=== PATIENT | female | born 1950 | race Caucasian/White ===

== ENCOUNTER → 2018-02-06 | Outpatient (CLI) | payer MEDICARE ==
[~2018-02-06] MED LIST: BACTRIM DS 8001 TA1 PO; BENADRYL25 MG PO; CLARITIN10 MG PO; ECOTRIN81 M1 PO; EPI EZ PEN1 MG/ML IM; HYDROCODONE BIT1 T11 PO; KEFLEX500 MG PO; LEVOXYL0.088 MG PO; LEXAPRO10 MG PO; LIPITOR40 MG PO; LOMOTIL 0.025 M1 TA1 PO; NEXIUM40 MG PO; OMEPRAZOLE40 MG PO; OXYBUTYNIN5 MG PO; PREVACID30 M1 PO; SYNTHROID,LEV200 MCG PO; ULTRAM50 MG PO; ZOFRAN ODT4 MG SL
[2018-02-06 13:50] LABS: BASO # 0.1 10*3/uL (0.0-0.1); BASO % 0.5 % (0.0-1.0); EOS # 0.2 10*3/uL (0.0-0.4); EOS % 1.7 % (1.0-4.0); HEMATOCRIT 39.9 % (37.0-47.0); HEMOGLOBIN 12.9 g/dl (12.0-16.0); LYMPH # 2.6 10*3/uL (1.3-4.4); MEAN CELL VOLUME 85.1 fl (81.0-99.0); MEAN CORPUSCULAR HGB 27.5 pg (27.0-31.0); MEAN CORPUSCULAR HGB CONC 32.3 g/dl (33.0-37.0); MEAN PLATELET VOLUME 9.7 fl (9.6-12.3); MONO # 0.8 10*3/uL (0.1-1.0); MONO % 7.7 % (3.0-9.0); NEUT # 6.7 10*3/uL (2.3-7.9); NEUT % 64.9 % (47.0-73.0); PLATELET COUNT AUTOMATED 362 10*3/uL (130-400); RED BLOOD COUNT 4.69 10*6/uL (4.10-5.10); RED CELL DISTRI WIDTH 14.1 % (0-14.5); WHITE BLOOD COUNT 10.3 10*3/uL (4.8-10.8)
[2018-02-07 17:04] LABS: ANTICARDIOLIPIN AB, IGG, QN <9 GPL U/mL (0-14); ANTICARDIOLIPIN AB, IGM, QN <9 MPL U/mL (0-12); CARDIOLIPIN AB IGA 161836 <9 APL U/mL (0-11)
[2018-02-08 00:02] LABS: ANTI-THROMBIN III ACTIVITY 108 % (75-135); PROTEIN S-FUNCTIONAL 164525 78 % (63-140)
== END | disposition home or self-care (01) ==
LOC: LAB 13:14
PROVIDERS: Student in an Organized Health Care Education/Training Program
DX: I63.9 Cerebral infarction, unspecified (principal)

== ENCOUNTER → 2018-03-13 | Outpatient (CLI) | payer MEDICARE ==
--- NOTE | ~2018-03-13 | ST ---
[place], [place] EXERCISE STRESS TEST REPORT NAME: NAE APPLE UNIT #: [id number] ROOM: DOCTOR: FARHAD LEW MD BIRTHDATE: [birth year] DOS: 03/13/2018 PHARMACOLOGIC STRESS TEST REASON FOR STRESS TEST: 1. Dyspnea on exertion. 2. History of strokes. PROCEDURE: The patient was given a rapid infusion of regadenoson 0.4 mg intravenously followed by a saline flush. She experienced dyspnea, shaking and a "cold" sensation, but had no nausea or headache. The resting electrocardiogram was normal with an incomplete right bundle branch block. No further changes occurred with the infusion. However, she did have a normal heart rate response to the infusion. Forty seconds after the infusion of regadenoson, she was given radionuclide intravenously. IMPRESSION: 1. Well tolerated infusion of regadenoson. 2. Radionuclide administered. Please see the separate report for details of the patient's nuclear perfusion imaging and exercise results. FARHAD LEW MD CM:STRESS:EXERCISE STRESS TEST REPORT 1334 23 FARHAD LEW MD
== END | disposition home or self-care (01) ==
LOC: CARD 07:58
DX: I10 Essential (primary) hypertension (principal); I63.9 Cerebral infarction, unspecified; R06.02 Shortness of breath; R53.81 Other malaise

== ENCOUNTER 2018-06-13 12:48 | Inpatient (IN) | payer MEDICARE ==
[~2018-06-13] VITALS: Ht 157.4 cm; Wt 107.2 kg
--- NOTE | ~2018-06-13 | EKG ---
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
--- NOTE | ~2018-06-13 | EKG ---
[place], [place] ELECTROCARDIOGRAM REPORT NAME: NAE APPLE UNIT #: [id number] ROOM: [facility] DOCTOR: UMU DRAFT REPORT BIRTHDATE: [birth year] [facility] Test Date: 2018-06-13 Test Time: 15:51:39 Pat Name: NAE APPLE Department: Room: [facility] Gender: F Non Destructive Tester: : 1950 Requested By: ROSA JOYCE Order Number: [id number] Reading MD: Abe Thacker MD Measurements Intervals [place] Rate: 58 P: 50 DC: 165 QRS: 13 QRSD: 100 T: 17 QT: 417 QTc: 410 Interpretive Statements Sinus rhythm Low voltage, precordial leads Abnormal R-wave progression, early transition Baseline wander in lead(s) V4 No change from earlier ECG this date Electronically Signed On 06-13-2018 18:35:15 PST by Abe Thacker MD CM:EKGRPT:ELECTROCARDIOGRAM REPORT 1551 1835 ROSA JOYCE EPIPHANY DRAFT REPORT ROSA JOYCE
--- NOTE | ~2018-06-13 | PR ---
[place], [place] PROGRESS NOTE [id number] UNIT #: [id number] ROOM: 525 DOCTOR: FARHAD LEW MD BIRTHDATE: [birth year] DOS: 06/14/2018 SUBJECTIVE: The patient was seen today at her bedside 06/14/2018 for followup of chest pain and a history of cryptogenic strokes. She is a 68-year-old woman who had 2 strokes during the summer of 2017. She was evaluated at the stroke center in [place] and no cause was found. The neurologist who saw her opined that this could be cardioembolic from occult arrhythmias. A full workup of that has not been completed, however. She did have an echocardiogram with saline contrast that showed no cardiac source of emboli and did not have any significant cerebrovascular disease either. She presented to the hospital now with substernal chest discomfort. She had several hours of pain on [place] and also in the hospital yesterday. EKGs obtained during pain showed no acute changes and despite prolonged pain, she did not have any elevation in troponin. She did have a recent pharmacologic stress test that showed a small area of anterior ischemia, but the amount of myocardium at risk was very limited and this is best treated medically. It probably has nothing to do with the symptoms she experiences now. On exam today, she is comfortable. Her speech is much more fluid than it was last night. OBJECTIVE: VITAL SIGNS: Her pulse is 64 and regular, blood pressure is 122/58. She is afebrile. NECK: Supple. She has no jugular distention. Carotids are full. LUNGS: Respirations are unlabored. Her chest is clear. HEART: Has a regular rhythm with a soft S4 gallop, but no S3 or murmur. ABDOMEN: Benign. EXTREMITIES: Showed no edema. I did speak to her daughter last night and explained my impressions and plan. IMPRESSION: 1. Recent episodes of cryptogenic stroke. 2. Mildly abnormal pharmacologic stress test done within the last 6 months. 3. Substernal chest pain, almost certainly not cardiac in origin and most likely gastrointestinal. PLAN: In order to complete her evaluation for cryptogenic stroke, I have arranged for her to undergo a 30-day mobile cardiac outpatient telemetry (MCOT) and we will follow up with her in the office after that. For now, she will continue her current medications, which included Ditropan 10 mg daily, levothyroxine 175 mcg daily, cetirizine 10 mg daily, enteric-coated aspirin 81 mg daily, metoprolol succinate 25 mg at bedtime, escitalopram 20 mg at bedtime, buspirone 10 mg b.i.d., atorvastatin 40 mg daily. I will leave further evaluation of her GI tract and further management of apparent reflux or esophageal spasm to her primary physicians. [place], [place] PROGRESS NOTE NAME: NAE APPLE UNIT #: [id number] ROOM: [facility] DOCTOR: FARHAD LEW MD BIRTHDATE: [birth year] I thank the hospitalist physician for asking our advice regarding her care. FARHAD LEW MD CM:PNTRANS 1207 [id number] FARHAD LEW MD 06/17/18 1327 interface
--- NOTE | ~2018-06-13 | EKG ---
[place], [place] ELECTROCARDIOGRAM REPORT NAME: NAE APPLE UNIT #: [id number] ROOM: 525 DOCTOR: UMU DRAFT REPORT BIRTHDATE: [birth year] [facility] Test Date: 2018-06-13 Test Time: 13:19:23 Pat Name: NAE APPLE Department: Room: Gender: F Quality Control Supervisor: Isis Cao : 1950 Requested By: ROSA JOYCE Order Number: [id number] Reading MD: Abe Thacker MD Measurements Intervals [place] Rate: 71 P: 66 [place]: 148 QRS: 32 QRSD: 103 T: 48 QT: 401 QTc: 436 Interpretive Statements Sinus rhythm Low voltage, precordial leads RSR' in V1 or V2, right VCD or RVH Compared to ECG 01/14/2018 15:02:28 T-wave abnormality no longer present Electronically Signed On 06-13-2018 18:29:47 PST by Abe Thacker MD CM:EKGRPT:ELECTROCARDIOGRAM REPORT 1319 1829 ROSA JOYCE EPIPHANY DRAFT REPORT ROSA JOYCE
[2018-06-13 12:51] VITALS: BP 153/74
[2018-06-13 13:24] LABS: BASO # 0.1 10*3/uL (0.0-0.1); BASO % 0.8 % (0.0-1.0); EOS # 0.4 10*3/uL (0.0-0.4); EOS % 3.7 % (1.0-4.0); HEMATOCRIT 41.5 % (37.0-47.0); HEMOGLOBIN 13.4 g/dl (12.0-16.0); LYMPH # 2.2 10*3/uL (1.3-4.4); LYMPH % 23.5 % (27.0-41.0); MEAN CELL VOLUME 84.5 fl (81.0-99.0); MEAN CORPUSCULAR HGB 27.3 pg (27.0-31.0); MEAN CORPUSCULAR HGB CONC 32.3 g/dl (33.0-37.0); MEAN PLATELET VOLUME 9.8 fl (9.6-12.3); MONO # 0.6 10*3/uL (0.1-1.0); MONO % 6.6 % (3.0-9.0); NEUT # 6.2 10*3/uL (2.3-7.9); NEUT % 65.2 % (47.0-73.0); PLATELET COUNT AUTOMATED 354 10*3/uL (130-400); RED BLOOD COUNT 4.91 10*6/uL (4.10-5.10); RED CELL DISTRI WIDTH 15.2 % (0-14.5); WHITE BLOOD COUNT 9.5 10*3/uL (4.8-10.8)
[2018-06-13 13:33] LABS: ACT PARTIAL THROMBO TIME 22.7 SECONDS (20.8-31.5)
[2018-06-13] MEDS ORDERED: TOPROL XL25 MG PO (13:33)
[2018-06-13] MEDS ORDERED: BUSPAR5 MG PO (13:34)
[2018-06-13 13:43] LABS: ALBUMIN 3.3 gm/dl (3.1-4.5); ALKALINE PHOSPHATASE 178 U/L (45-117); BUN 12 mg/dl (7-24); CHLORIDE 104 mmol/L (98-107); CREATININE 0.97 mg/dL (0.55-1.02); POTASSIUM 4.1 mmol/L (3.5-5.1); SGOT/AST 23 IU/L (3-35); SGPT/ALT 47 U/L (12-78); SODIUM 139 mmol/L (136-145); TOTAL PROTEIN 7.9 gm/dL (6.4-8.2)
[2018-06-13 13:46] LABS: TROPONIN I < 0.015 ng/ml (<0.045)
[2018-06-13 14:50] VITALS: BP 129/72
[2018-06-13] MEDS ORDERED: LEXAPRO20 MG PO (15:00)
[2018-06-13] MEDS ORDERED: SYNTHROID,LEV175 MCG PO (15:01)
[2018-06-13] MEDS ORDERED: OXYBUTYNIN5 MG PO (15:02)
[2018-06-13] MEDS ORDERED: IBU400 M1 PO (15:04)
[2018-06-13] MEDS ORDERED: ZYRTEC10 MG PO (15:04)
[2018-06-13 15:10] VITALS: BP 122/86
--- NOTE | 2018-06-13 15:10 | NUR ---
A 68, admitted to 5E, under the services of KIRSTIE Riley DO with a diagnosis of CHEST PAIN. Chief complaint is CHEST PAIN. Patient arrived via stretcher from ER. Monitor applied. Initial assessment completed. Vital signs taken and recorded. KIRSTIE RILEY DO notified of admission to the unit. Orders received. See assessment for past medical history, medications and allergies. Patient and/or family oriented to unit. [address] visitation policy reviewed. Clothing/patient valuable form completed. AMERICA SOSA
--- NOTE | 2018-06-13 15:32 | NUR ---
MED REC UPDATED WITH [facility]. DR DAWSON NOTIFIED.
--- NOTE | 2018-06-13 15:34 | NUR ---
DR LEW'S OFFICE CALLED RE: CONSULT, INFO GIVEN.
[2018-06-13 16:00] VITALS: BP 122/90
[2018-06-13 20:00] VITALS: BP 119/53
--- NOTE | 2018-06-13 22:09 | NUR ---
NOTIFIED DR PEREZ OF PATIENT REQUESTING SOMETHING FOR HEARTBURN. STATED HE WILL PUT SOMETHING IN.
[2018-06-14] VITALS: BP 100/45; BP 110/62
[2018-06-14 06:27] LABS: ALBUMIN 2.9 gm/dl (3.1-4.5); ALKALINE PHOSPHATASE 153 U/L (45-117); BUN 13 mg/dl (7-24); CHLORIDE 104 mmol/L (98-107); CHOLESTEROL 114 mg/dL (<200); CREATININE 0.86 mg/dL (0.55-1.02); FREE T4 1.22 ng/dl (0.76-1.46); HDL CHOLESTEROL 46 mg/dl (40-60); LDL CHOLESTEROL 55 mg/dL (9-159); PHOSPHOROUS 3.3 mg/dL (2.5-4.9); SGOT/AST 21 IU/L (3-35); SGPT/ALT 40 U/L (12-78); SODIUM 139 mmol/L (136-145); TOTAL PROTEIN 7.1 gm/dL (6.4-8.2); TRIGLYCERIDES 66 mg/dl (<150); VLDL CHOLESTEROL 13 mg/dL (6-40)
[2018-06-14 06:32] LABS: ACT PARTIAL THROMBO TIME 23.5 SECONDS (20.8-31.5)
[2018-06-14 06:34] LABS: BASO # 0.1 10*3/uL (0.0-0.1); EOS # 0.3 10*3/uL (0.0-0.4); EOS % 3.3 % (1.0-4.0); HEMATOCRIT 38.2 % (37.0-47.0); HEMOGLOBIN 11.8 g/dl (12.0-16.0); LYMPH # 3.2 10*3/uL (1.3-4.4); LYMPH % 30.4 % (27.0-41.0); MEAN CELL VOLUME 85.3 fl (81.0-99.0); MEAN CORPUSCULAR HGB 26.3 pg (27.0-31.0); MEAN CORPUSCULAR HGB CONC 30.9 g/dl (33.0-37.0); MEAN PLATELET VOLUME 9.6 fl (9.6-12.3); MONO # 0.8 10*3/uL (0.1-1.0); MONO % 7.5 % (3.0-9.0); NEUT % 57.6 % (47.0-73.0); PLATELET COUNT AUTOMATED 306 10*3/uL (130-400); RED BLOOD COUNT 4.48 10*6/uL (4.10-5.10); RED CELL DISTRI WIDTH 15.3 % (0-14.5); WHITE BLOOD COUNT 10.4 10*3/uL (4.8-10.8)
--- NOTE | 2018-06-14 07:16 | NUR ---
PATIENT RESTING ON RIGHT SIDE WITH EYES CLOSED. RESPIRATIONS ARE EASY AND REGULAR. NO DISTRESS IS NOTED. BED IS IN LOWEST POSTIION WITH WHEELS LOCKED. CALL LIGHT IS WITHIN REACH. WILL CONINTUE TO MONITOR.
[2018-06-14 08:00] VITALS: BP 122/58
--- NOTE | 2018-06-14 09:00 | NUR ---
Senior Environmental Consultant in to talk to patient. Patient states lives at home with family. There are few steps in the home. Physician: yesenia bustos Pharmacy: [facility] health services: none Patient's level of ADLs: INDEPENDENT Patient has working utilities: all working DME: none Follow-up physician's appointment after d/c: will be made by hospitalist nurse director upon discharge Does patient want to access PORTAL?: no Discharge plan discussed with patient, patient lives at home with family, she is independent in adls and ambulation, patient states she will be going back home when able and denies any home needs. ELIZA SIM
[2018-06-14 09:34] LABS: VITAMIN D, 25-HYDROXY 25.7 ng/mL (30-100)
[2018-06-14 12:00] VITALS: BP 123/62
--- NOTE | 2018-06-14 13:52 | NUR ---
Discharge instructions reviewed with patient/family. Patient receptive and verbalizes understanding. Follow-up care arranged. Written instructions given to patient/family. HEP LOCK REMOVED AND DRESSING/PRESSURE APPLIED. MANAGING DIRECTOR ACCOUNTED FOR. ALL BELONGINGS GATHERED AND ACCOUNTED FOR. ROBERTO CARLOS CHUA
--- NOTE | 2018-06-14 14:28 | NUR ---
Nursing screen received and chart review completed. Patient to be discharge today. Emily Long OTR/L
--- NOTE | 2018-06-17 07:52 | NUR ---
PHYSICAL THERAPY Nursing screen recieved. Patient discharged. Thank you. Kaya Florez,PT
[2018-10-22] MEDS ORDERED: Synthroid,Lev150 MCG PO (16:46)
[2018-10-22] MEDS ORDERED: CLARITIN10 MG PO (16:53)
[2018-10-24] MEDS ORDERED: CEFUROXIME250 MG PO (12:32)
== END 2018-06-14 13:52 | disposition home or self-care (01) | DRG 392 ==
LOC: ED 12:48 → 5E 14:19 → EDHOLD 14:19 → 5E 14:28
PROVIDERS: Internal Medicine; Nurse Practitioner Family; ADMIT Internal Medicine
DX: K21.9 Gastro-esophageal reflux disease without esophagitis (principal); E44.1 Mild protein-calorie malnutrition; R47.01 Aphasia; Z68.41 Body mass index [BMI] 40.0-44.9, adult; R07.89 Other chest pain; E78.5 Hyperlipidemia, unspecified; D72.810 Lymphocytopenia; I10 Essential (primary) hypertension; R73.9 Hyperglycemia, unspecified; E03.9 Hypothyroidism, unspecified; N39.41 Urge incontinence; F32.9 Major depressive disorder, single episode, unspecified; R94.39 Abnormal result of other cardiovascular function study; Z88.2 Allergy status to sulfonamides; Z84.89 Family history of other specified conditions; Z86.73 Personal history of transient ischemic attack (TIA), and cerebral infarction without residual deficits; Z91.030 Bee allergy status

== ENCOUNTER → 2018-07-02 | Outpatient (CLI) | payer MEDICARE ==
[~2018-07-02] MED LIST changes: +BUSPAR5 MG PO; +CEFUROXIME250 MG PO; +IBU400 M1 PO; +LEXAPRO20 MG PO; +PERCOCET 5-3251 EACH PO; +SYNTHROID,LEV175 MCG PO; +Synthroid,Lev150 MCG PO; +TOPROL XL25 MG PO; +ZYRTEC10 MG PO
--- NOTE | ~2018-07-02 | SLPPOC ---
[place], [place] BRAZER RESISTANCE PLAN OF CARE NAME: NAE APPLE UNIT #: [id number] ROOM: DOCTOR: ALVIN EDWARDS DO Speech Language Pathology Plan of Care Page 1 1 (Initial Evaluation) of Patient Name: NAE APPLE Date: 07/02/2018 02:24 PM : 1950 SOC Date: 07/02/2018 [facility]: [facility] Provider #: [id number] Treating Clinician: LEVON Gregorio-BRAZER RESISTANCE Referring Physician: ALVIN EDWARDS Medicare #: [id number] Visits From SOC: Onset Date Description Code Primary Diagnosis: 07/02/2018 A0000 NO DIAGNOSIS SENT TO THE [facility] INTERFACE Subjective Comments: Initial evaluation created to initiate the electronic medical record. Please see Jumblets for details. Initial Level Goals Functional Limitation Reporting Swallowing G8996 - Swallowing functional limitation, current status at therapy episode outset and at reporting intervals Current Status: CI - At least 1 percent but less than 20 percent impaired, limited or restricted G8997 - Swallowing functional limitation, projected goal status, at therapy episode outset, at reporting intervals, and at discharge or to end reporting Goal Status: CI - At least 1 percent but less than 20 percent impaired, limited or restricted G8998 - Swallowing functional limitation, discharge status, at discharge from therapy or to end reporting Discharge Status: CI - At least 1 percent but less than 20 percent impaired, limited or restricted 07/02/2018 2:25:14 PM ALVIN EDWARDS Date/Time LEVON Gregorio-BRAZER RESISTANCE Date I certify the need for these services furnished under this plan of treatment while under my care. State License #: [id number] CM:SLPPOC 1430 1430 [facility] TH[facility]
--- NOTE | ~2018-07-02 | PROC NOTE ---
[place], [place] PROCEDURE NOTE NAME: NAE APPLE UNIT #: [id number] ROOM: DOCTOR: SYBILADELINA BIRTHDATE: [birth year] DOS: 07/02/2018 MODIFIED BARIUM SWALLOW ORDERING PHYSICIAN: Katie Agarwal DO RADIOLOGIST: Dr. Lincoln. BACKGROUND INFORMATION: The patient is a 68-year-old patient was seen for modified barium swallow. This test was ordered to view the pharyngeal phase of the swallow. This patient suffered 2 CVAs several months ago with resultant speech, language, and swallowing difficulties. The patient reports food sticking and frequent cough and throat clearing with meals. The patient currently receives a regular diet and honey-thick liquids. For today's assessment, the patient was alert and able to follow commands. Respiratory status was within normal limits. Oral peripheral examination revealed presence of partial plates. Lingual, labial, and buccal skills were within functional limits in terms of strength, range of motion, and coordination. The patient was able to volitionally cough and swallow. METHODS AND MATERIALS USED FOR THE EXAM: The patient was positioned in the lateral plane and the exam was viewed under fluoroscopy. The patient was presented with a variety of consistencies to assess swallowing skills including applesauce mixed with barium presented in half teaspoon amounts, barium-coated cookie and sandwich given in bite size pieces and honey thick, nectar thick and thin liquid barium taken by cup. The patient was given the cup and swallowed in single sip size amounts. ORAL PHASE: The patient achieved adequate labial seal around cup and spoon with no anterior loss. Bolus formation and transit were adequate. Mastication was slow and careful. The patient achieved adequate tongue to palate contact. Tongue to posterior pharyngeal wall contact was adequate. Velar functioning was within normal limits with no nasal regurgitation. PHARYNGEAL PHASE: The pharyngeal swallow occurred within a timely manner. During the swallow, laryngeal elevation and epiglottic function were within normal limits. There was no penetration or aspiration occurring with any consistency. There was no residue in the pharynx. ESOPHAGEAL PHASE: This phase of the swallow was not formally assessed during this exam. IMPRESSIONS AND RECOMMENDATIONS: Based upon assessment results, this 68-year-old patient presents with oral and pharyngeal swallowing skills within normal limits with all consistencies given. There was no penetration, aspiration or residue. Recommend the patient receive a regular diet and thin liquids. The patient did report coughing and choking at meals, sometimes; therefore, it was recommended that she be monitored for signs and symptoms of aspiration during the full meal and if these are displayed, the patient could be provided with nectar thick liquid instead of thin liquid for safety. Recommend [place], [place] PROCEDURE NOTE NAME: NAE APPLE UNIT #: [id number] ROOM: DOCTOR: ADELINA DEVINE BIRTHDATE: [birth year] safe swallow precautions such as small bites and sips, upright positioning for meals and alternating liquid and solid. Continued outpatient therapy is also recommended. Results and recommendations were shared with the patient, her daughter and the patient's speech pathologist. Thank you very much for this referral, should you have any questions regarding this patient, please contact the speech pathologist at [phone]. ADELINA DEVINE CM:PROCNOTE:PROCEDURE NOTE 1441 1818 ADELINA DEVINE
--- NOTE | ~2018-07-02 | SLPIE ---
[place], [place] DIRECTOR OF PATIENT CARE INITIAL EVALUATION NAME: NAE APPLE UNIT #: [id number] ROOM: DOCTOR: ALVIN EDWARDS DO Speech Language Pathology Initial Evaluation Page 1 1 of Patient Name: NAE APPLE Date: 07/02/2018 02:24 PM : 1950 SOC Date: 07/02/2018 Provider: [facility] Provider #: [id number] Treating Clinician: LEVON Gregorio-DIRECTOR OF PATIENT CARE Referring Physician: ALVIN EDWARDS Patient Information Address: [address] [place] [address] Physician: ALVIN EDWARDS Physician #: City, [facility], Zip: [place] [address] Occupation: Unknown # of Approved Visits: 0 Gender: Female Application Trainer: MARIAH CARY Medicare #: [id number] Rehabilitation Information / History Onset Date Code Description Primary Diagnosis: 07/02/2018 A0000 NO DIAGNOSIS SENT TO THE [facility] INTERFACE Subjective Comments: Initial evaluation created to initiate the electronic medical record. Please see EATON for details. Rehabilitation Information / History Clinical Findings Functional Goals Functional Limitation Reporting Swallowing G8996 - Swallowing functional limitation, current status at therapy episode outset and at reporting intervals Current Status: CI - At least 1 percent but less than 20 percent impaired, limited or restricted G8997 - Swallowing functional limitation, projected goal status, at therapy episode outset, at reporting intervals, and at discharge or to end reporting Goal Status: CI - At least 1 percent but less than 20 percent impaired, limited or restricted G8998 - Swallowing functional limitation, discharge status, at discharge from therapy or to end reporting Discharge Status: CI - At least 1 percent but less than 20 percent impaired, limited or restricted 07/02/2018 2:25:14 PM LEVON Gregorio-DIRECTOR OF PATIENT CARE Date/Time [place], [place] DIRECTOR OF PATIENT CARE INITIAL EVALUATION NAME: NAE APPLE UNIT #: [id number] ROOM: DOCTOR: ALVIN EDWARDS DO [facility] License #: [id number] CM:SLPIE 1430 143 [facility]
--- NOTE | ~2018-07-02 | SLPPN ---
[place], [place] LANDSCAPE CREW MEMBER PROGRESS NOTE NAME: NAE APPLE UNIT #: [id number] ROOM: DOCTOR: ALVIN EDWARDS DO Speech Language Pathology Treatment Note Page 1 1 of Patient Name: NAE APPLE Date: 07/02/2018 02:25 PM : 1950 SOC Date: 07/02/2018 Provider: [facility] Provider #: [id number] Treating Clinician: LEVON Gregorio-PRICILA Referring Physician: ALVIN EDWARDS Onset Date Description Code Primary Diagnosis: 07/02/2018 A0000 NO DIAGNOSIS SENT TO THE [facility] INTERFACE Time In: 01:00 PM Time Out: 02:00 PM LANDSCAPE CREW MEMBER Interventions and CPT Codes Consisted of: CPT Code Modifiers Minutes Units MOTION FLUOROSCOPY/SWALLOW 41999 60 1 Total Minutes: 60 Total Timed Minutes: 0 Total Untimed Minutes: 60 Total Units: 1 Total Timed Units: 0 Total Untimed Units: 1 07/02/2018 2:26:18 PM ELDER Gregorio Date/Time State License #: [id number] CM:ALEXYS 1430 1430 [facility]
--- NOTE | 2018-07-02 14:27 | NUR ---
SPEECH PATHOLOGY Outpatient MBS completed as per orders. This was ordered to view the pharyngeal phase of the swallow. Patient suffered two CVAs several months ago, with resultant speech/language and swallowing difficulties. Patient reports foods sticking and frequent cough/throat clearing with meals. She currently receives a regular diet and honey thick liquids. During assessment she was alert and cooperative. Oral peripheral exam revealed presence of partial plates. Lingual/labial and buccal skills were WFL in terms of strength, ROM and coordination. She was assessed with puree, solids and honey thick, nectar thick and thin liquid. She displayed oral and pharyngeal swallowing skills WNL with all consistencies. Patient displayed slow, careful chewing of solids. She swallowed in a timely manner with no penetration, aspiration or residue. Recommend a regular diet and thin liquid. Also recommend to monitor for s/s aspiration, and if they are displayed during meals, nectar thick liquid could be provided instead of thin liquid. Also nasreen. safe swallow precautions such as small bites/sips, upright positioning for meals and alternating liquid and solid. Continued outpatient therapy is also recommended. Results/nasreen. were shared with patient, her daughter and outpatient VOLUNTEER ASSISTANT. Dictated report to follow. Thank you for this referral. ADELINA DEVINE MSCCC-VOLUNTEER ASSISTANT
== END | disposition home or self-care (01) ==
LOC: RAD/SH 06-17 14:00
DX: R13.10 Dysphagia, unspecified (principal); R22.0 Localized swelling, mass and lump, head; M32.9 Systemic lupus erythematosus, unspecified

== ENCOUNTER 2018-07-26 19:35 | Inpatient (IN) | payer MEDICARE ==
[~2018-07-26] VITALS: Ht 157.5 cm; Wt 104.9 kg
--- NOTE | ~2018-07-26 | EKG ---
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
--- NOTE | ~2018-07-26 | O ---
[place], [place] OPERATIVE NOTE [id number] UN[facility] #: [id number] ROOM: 531 DOCTOR: JASKARAN VALLEJO MD BIRTHDATE: [birth year] DOS: 07/27/2018 PREOPERATIVE DIAGNOSIS: Acute cholecystitis. POSTOPERATIVE DIAGNOSIS: Acute cholecystitis. PROCEDURE: Laparoscopic cholecystectomy. SURGEON: Jaskaran Vallejo MD PLATE SETTER: MIRELA. ANESTHESIA: General with endotracheal intubation. INDICATIONS: This is a 68-year-old lady admitted with right upper quadrant abdominal pain and on a CAT scan that showed acute cholecystitis. It was decided to take the patient to the operating room for the above-mentioned procedure. The procedure and its complications were explained to the patient in detail preoperatively. Complications that were discussed included but were not limited to bleeding, infection, hematoma/seroma/abscess formation, biloma formation, inadvertent injury to common bile duct, incisional hernia formation and prolonged postoperative pain. She agreed to proceed. DESCRIPTION OF PROCEDURE: After identifying the patient, the patient was brought to the operating suite and laid in the supine position. After induction of general anesthesia, timeout procedure was called and the parts were then painted and draped in the usual sterile fashion. An incision in a transverse fashion was made below the umbilicus. The skin and the subcutaneous tissue were incised. The fascia was opened and 2 stay sutures were taken with 0 Vicryl on either side. The peritoneum was opened. A 12 mm Isabela port was introduced into the peritoneal cavity and a pneumoperitoneum was created. Under direct vision, an epigastric incision of 12 mm and two 5 mm incisions were made in the right upper quadrant and appropriate size ports were introduced. The gallbladder was found to be acutely inflamed. Approximately 100 mL of fluid was aspirated from the gallbladder and in order to better grasp the gallbladder. There were some chronic adhesions between the gallbladder and the underlying omentum, which were taken down with the help of electrocautery. The gallbladder was then retracted superiorly and laterally. The cystic duct and the cystic artery were carefully dissected till the critical view of safety was identified and the triangle of Calot was clearly delineated. Thereafter, each of the structures were clipped 3 times and cut between the first and the second clip. The gallbladder was then removed from the bed of the gallbladder with the help of electrocautery. It was placed in an EndoCatch bag and removed from the peritoneal cavity and sent for histopathological diagnosis. Thereafter, copious amount of saline was used for irrigation and hemostasis was achieved in the liver bed. After hemostasis was confirmed, the irrigation fluid was sucked away. The right upper quadrant and epigastric ports were removed and there was no bleeding seen. The umbilical port was also removed and the 2 stay sutures were tied together and an additional 0 Vicryl suture was taken in a [id number] fashion to close the fascial defect. The edges of the skin were [place], [place] OPERATIVE NOTE NAME: NAE APPLE UNIT #: [id number] ROOM: 531 DOCTOR: JASKARAN VALLEJO MD BIRTHDATE: [birth year] infiltrated with 1% lidocaine and then approximated with the help of 4-0 Vicryl in a subcuticular running fashion. Dressings were placed in all the 4 incisions and the patient was extubated uneventfully and brought back to the recovery room in stable fashion. There were no complications. Dr. Jaskaran Vallejo, the attending surgeon, was present throughout the operating case. Jaskaran Vallejo MD CM:OPRECORD:OPERATIVE NOTE 1046 1146 JASKARAN VALLEJO MD 07/27/18 1146 interface
--- NOTE | ~2018-07-26 | EKG ---
[place], [place] ELECTROCARDIOGRAM REPORT NAME: NAE APPLE UNIT #: [id number] ROOM: 531 DOCTOR: UMU DRAFT REPORT BIRTHDATE: [birth year] [facility] Test Date: 2018-07-27 Test Time: 03:25:43 Pat Name: NAE APPLE Department: Room: 531 1 Gender: F Clinical Technician: : 1950 Requested By: LIONEL FRAZIER Order Number: [id number] Reading MD: Abe Thacker MD Measurements Intervals [place] Rate: 88 P: 52 ME: 159 QRS: 34 QRSD: 105 T: 8 QT: 348 QTc: 421 Interpretive Statements Sinus rhythm RSR' in V1 or V2, probably normal variant Nonspecific T abnormalities, anterior leads Compared to ECG 06/13/2018 17:36:39 T-wave abnormality now present Right ventricular hypertrophy no longer present Electronically Signed On 07-31-2018 15:28:17 PST by Abe Thacker MD CM:EKGRPT:ELECTROCARDIOGRAM REPORT [id number] LIONLE SANZ DRAFT REPORT LIONEL FRAZIER
[~2018-07-26 19:35] MED LIST changes: -CEFUROXIME250 MG PO; -PERCOCET 5-3251 EACH PO; -Synthroid,Lev150 MCG PO
[2018-07-26 19:39] VITALS: BP 138/62
[2018-07-26 20:44] LABS: BASO # 0.1 10*3/uL (0.0-0.1); BASO % 0.4 % (0.0-1.0); EOS % 0.2 % (1.0-4.0); HEMATOCRIT 39.4 % (37.0-47.0); HEMOGLOBIN 12.9 g/dl (12.0-16.0); LYMPH # 1.5 10*3/uL (1.3-4.4); LYMPH % 9.2 % (27.0-41.0); MEAN CELL VOLUME 83.3 fl (81.0-99.0); MEAN CORPUSCULAR HGB 27.3 pg (27.0-31.0); MEAN CORPUSCULAR HGB CONC 32.7 g/dl (33.0-37.0); MEAN PLATELET VOLUME 9.4 fl (9.6-12.3); MONO # 1.4 10*3/uL (0.1-1.0); MONO % 8.8 % (3.0-9.0); NEUT # 13.2 10*3/uL (2.3-7.9); NEUT % 81.1 % (47.0-73.0); PLATELET COUNT AUTOMATED 369 10*3/uL (130-400); RED BLOOD COUNT 4.73 10*6/uL (4.10-5.10); WHITE BLOOD COUNT 16.3 10*3/uL (4.8-10.8)
[2018-07-26 21:03] LABS: ALBUMIN 3.3 gm/dl (3.1-4.5); ALKALINE PHOSPHATASE 151 U/L (45-117); BUN 8 mg/dl (7-24); CHLORIDE 102 mmol/L (98-107); CREATININE 0.83 mg/dL (0.55-1.02); POTASSIUM 3.8 mmol/L (3.5-5.1); SGOT/AST 19 IU/L (3-35); SGPT/ALT 43 U/L (12-78); SODIUM 136 mmol/L (136-145)
--- NOTE | 2018-07-26 22:18 | NUR ---
DILAUDID EFFECTIVE FOR PAIN.
[2018-07-26 22:22] LABS: LIPASE 74 U/L (73-393)
[2018-07-27] VITALS (10 sets, daily range): BP systolic 108–146; BP diastolic 37–75
[2018-07-27] MEDS ORDERED: BUSPAR5 MG PO (02:20)
--- NOTE | 2018-07-27 03:08 | NUR ---
A 68, admitted to 5E, under the services of PATI Almendarez DO with a diagnosis of CHOLECYSTITIS, ACUTE. Chief complaint is ABDOMINAL PAIN. Patient arrived via ambulance from ER. Monitor applied. Initial assessment completed. Vital signs taken and recorded. PATI ALMENDAREZ DO notified of admission to the unit. Orders received. See assessment for past medical history, medications and allergies. Patient and/or family oriented to unit. [facility] visitation policy reviewed. Clothing/patient valuable form completed. LIZETH HURD
[2018-07-27 04:19] LABS: BILIRUBIN NEGATIVE (NEGATIVE); BLOOD TRACE-INTACT (NEGATIVE); CLARITY CLEAR (CLEAR); COLOR YELLOW (YELLOW); GLUCOSE NEGATIVE (NEGATIVE); KETONE NEGATIVE (NEGATIVE); LEUKO ESTERASE TRACE (NEGATIVE); NITRITE NEGATIVE (NEGATIVE); PH 5.5 (5.0-9.0); SPECIFIC GRAVITY <= 1.005 (1.005-1.030); UROBILINOGEN 0.2 E.U./dl (0.2-1.0)
[2018-07-27 04:37] LABS: BACTERIA 1+; EPITHELIAL CELLS TNTC; WBC 31-40 wbc/hpf (0-5)
[2018-07-27 05:58] LABS: HEMATOCRIT 38.4 % (37.0-47.0); HEMOGLOBIN 12.2 g/dl (12.0-16.0); MEAN CELL VOLUME 85.5 fl (81.0-99.0); MEAN CORPUSCULAR HGB 27.2 pg (27.0-31.0); MEAN CORPUSCULAR HGB CONC 31.8 g/dl (33.0-37.0); MEAN PLATELET VOLUME 9.3 fl (9.6-12.3); PLATELET COUNT AUTOMATED 321 10*3/uL (130-400); RED BLOOD COUNT 4.49 10*6/uL (4.10-5.10); RED CELL DISTRI WIDTH 15.4 % (0-14.5)
[2018-07-27 06:04] LABS: ACT PARTIAL THROMBO TIME 26.7 SECONDS (20.8-31.5); ALBUMIN 2.8 gm/dl (3.1-4.5); ALKALINE PHOSPHATASE 138 U/L (45-117); BUN 7 mg/dl (7-24); CHLORIDE 104 mmol/L (98-107); CHOLESTEROL 95 mg/dL (<200); CREATININE 0.85 mg/dL (0.55-1.02); HDL CHOLESTEROL 54 mg/dl (40-60); INTERNATIONAL NORM RATIO 1.1 (2.0-3.5); LDL CHOLESTEROL 31 mg/dL (9-159); PHOSPHOROUS 2.7 mg/dL (2.5-4.9); POTASSIUM 3.8 mmol/L (3.5-5.1); SGOT/AST 20 IU/L (3-35); SGPT/ALT 40 U/L (12-78); SODIUM 139 mmol/L (136-145); TOTAL PROTEIN 7.3 gm/dL (6.4-8.2); TRIGLYCERIDES 49 mg/dl (<150); VLDL CHOLESTEROL 10 mg/dL (6-40)
[2018-07-27 06:07] LABS: TROPONIN I < 0.015 ng/ml (<0.045)
[2018-07-27 07:28] LABS: PLATELET SUFFICIENCY NORMAL (NORMAL); TOTAL CELLS COUNTED 100 #CELLS
[2018-07-27 07:54] LABS: VITAMIN D, 25-HYDROXY 25.6 ng/mL (30-100)
--- NOTE | 2018-07-27 13:05 | NUR ---
ADMINISTERED IV DILAUDID PER PT REQUEST FOR C/O ABDOMINAL PAIN RATED 10/10. WILL MONITOR FOR EFFECTIVENESS
--- NOTE | 2018-07-27 13:45 | NUR ---
Patient resting quietly with no c/o discomfort. Respirations easy and regular. Vital signs stable. No overt distress. KEYLA SCHLUZ
--- NOTE | 2018-07-27 16:45 | NUR ---
ADMINISTERED IV DILAUDID PER PT REQUEST FOR C/O ABDOMINAL PAIN RATED 9/10. WILL MONITOR FOR EFFECTIVENESS. FAMILY AT THE BEDSIDE
--- NOTE | 2018-07-27 17:30 | NUR ---
PT RESTING COMFORTABLY WITH NO FURTHER C/O PAIN. FAMILY AT THE BEDSIDE
--- NOTE | 2018-07-27 18:30 | NUR ---
PT UP TO RESTROOM WITH AID. C/O RIGHT SUBCLAVIAN DISCOMFORT. ENCOURAGED AMBULATION AND FREQUENT REPOSITIONING.
--- NOTE | 2018-07-27 20:07 | NUR ---
TRANSFER ORDER PUT IN BY DR BRUNSON TODAY WAS CLARIFIED WITH DR DAWSON AND DR DAWSON STATED THE PATIENT CAN REMAIN MED/SURG.
--- NOTE | 2018-07-27 22:44 | NUR ---
DILAUDID GIVEN AT THIS TIME FOR C/O ABD PAIN OF 810. WILL CONT TO MONITOR. CALL LIGHT IN REACH.
--- NOTE | 2018-07-27 23:34 | NUR ---
DILAUDID EFF. PT RESTING QUIETLY. WILL CONT TO MONITOR. CALL LIGHT IN REACH.
[2018-07-28] VITALS: BP 124/48
--- NOTE | 2018-07-28 05:26 | NUR ---
IV DILAUDID GIVEN AT THIS TIME PER PT REQUEST FOR PAIN TO ABD OF 01/18. WILL CONT TO MONITOR. CALL LIGHT IN REACH.
[2018-07-28 06:15] LABS: HEMATOCRIT 33.9 % (37.0-47.0); HEMOGLOBIN 10.5 g/dl (12.0-16.0); MEAN CELL VOLUME 86.3 fl (81.0-99.0); MEAN CORPUSCULAR HGB 26.7 pg (27.0-31.0); MEAN PLATELET VOLUME 9.7 fl (9.6-12.3); PLATELET COUNT AUTOMATED 292 10*3/uL (130-400); RED BLOOD COUNT 3.93 10*6/uL (4.10-5.10); RED CELL DISTRI WIDTH 15.3 % (0-14.5); WHITE BLOOD COUNT 22.2 10*3/uL (4.8-10.8)
[2018-07-28 06:27] LABS: ALBUMIN 2.3 gm/dl (3.1-4.5); BUN 9 mg/dl (7-24); CHLORIDE 107 mmol/L (98-107); POTASSIUM 3.9 mmol/L (3.5-5.1); SGPT/ALT 51 U/L (12-78); SODIUM 141 mmol/L (136-145)
[2018-07-28 06:28] LABS: ALKALINE PHOSPHATASE 117 U/L (45-117); CREATININE 0.75 mg/dL (0.55-1.02); SGOT/AST 30 IU/L (3-35); TOTAL PROTEIN 6.6 gm/dL (6.4-8.2)
--- NOTE | 2018-07-28 06:30 | NUR ---
IV DILAUDID EFF. WILL CONT TO MONITOR. CALL LIGHT IN REACH.
[2018-07-28 07:19] LABS: ACANTHOCYTES FEW; PLATELET SUFFICIENCY NORMAL (NORMAL); TOTAL CELLS COUNTED 100 #CELLS
[2018-07-28 08:00] VITALS: BP 101/42
--- NOTE | 2018-07-28 09:30 | NUR ---
02 REMOVED AT THIS TIME. 02 APPLIED YESTERDAY AFTER SURGERY. PATIENT'S PULSE OX 97% VIA 3LNC. PT NOT 02 DEPENDENT. PULSE OX 94-95% VIA RA. PT DENIES ANY SOB. WILL CONTINUE TO MONITOR. CALL LIGHT WITHIN REACH.
--- NOTE | 2018-07-28 10:00 | NUR ---
PULSE OX REMAINS 94% VIA RA. WILL CONTINUE TO MONITOR.
--- NOTE | 2018-07-28 10:15 | NUR ---
IN TO SEE PATIENT.
--- NOTE | 2018-07-28 10:45 | NUR ---
PT MEDICATED WITH PO NORCO PER PRN ORDER FOR C/O ABD PAIN. RATES PAIN 12/18. WILL MONITOR EFFECTIVENESS.
--- NOTE | 2018-07-28 11:47 | NUR ---
NORCO RELIEVING PAIN PER PT. WILL CONTINUE TO MONITOR.
[2018-07-28 12:00] VITALS: BP 119/48
--- NOTE | 2018-07-28 12:22 | NUR ---
DAUGHTER IN TO SEE PATIENT.
[2018-07-28 16:00] VITALS: BP 118/62
--- NOTE | 2018-07-28 16:57 | NUR ---
THIS NURSE CALLED INTO PATIENT'S ROOM BY DAUGHTER. ACCORDING TO DAUGHTER, PATIENT GOT UP TO THE BATHROOM AND BECAME SLIGHTLY DIZZY AND FELT WARM. UPON ASSESSMENT, PATIENT RESTING COMFORTABLY. FACE FLUSHED. UPPER CHEST AND UPPER ARMS RED AND WARM TO TOUCH. PT AFEBRILE. VSS. NOTIFIED. NEW ORDERS RECEIVED.
[2018-07-28 17:05] VITALS: BP 116/48
--- NOTE | 2018-07-28 17:44 | NUR ---
PT MEDICATED WITH IV DILAUDID PER PRN ORDER FOR C/O ABD PAIN. RATES PAIN 02/18. WILL MONITOR EFFECTIVENESS.
--- NOTE | 2018-07-28 18:00 | NUR ---
PT MEDICATED WITH IV ZOFRAN PER PRN ORDER FOR C/O NAUSEA. WILL MONITOR EFFECTIVENESS.
--- NOTE | 2018-07-28 18:41 | NUR ---
PAIN BEING RELIEVED PER PT. WILL CONTINUE TO MONITOR.
[2018-07-28 20:00] VITALS: BP 106/56
[2018-07-29] VITALS: BP 119/59
--- NOTE | 2018-07-29 00:59 | NUR ---
PT MEDICATED W/PERCOCET FOR C/O MID ABD PAIN 12/18. ASSISTED TO BR THEN BACK TO BED. WILL MONITOR FOR EFFECTIVENESS. CALL LIGHT IN REACH.
--- NOTE | 2018-07-29 02:00 | NUR ---
PT RESTING QUIETLY IN BED. PT STATES THAT PERCOCET WAS EFFECTIVE FOR PAIN RELIEF W/OUT ANY ADVERSE REACTIONS NOTED.
[2018-07-29 06:50] LABS: BASO % 0.2 % (0.0-1.0); EOS # 0.1 10*3/uL (0.0-0.4); EOS % 0.4 % (1.0-4.0); HEMATOCRIT 29.7 % (37.0-47.0); HEMOGLOBIN 9.5 g/dl (12.0-16.0); LYMPH # 2.6 10*3/uL (1.3-4.4); LYMPH % 18.5 % (27.0-41.0); MEAN CELL VOLUME 86.1 fl (81.0-99.0); MEAN CORPUSCULAR HGB 27.5 pg (27.0-31.0); MONO # 1.1 10*3/uL (0.1-1.0); MONO % 7.7 % (3.0-9.0); NEUT # 10.2 10*3/uL (2.3-7.9); NEUT % 72.8 % (47.0-73.0); PLATELET COUNT AUTOMATED 298 10*3/uL (130-400); RED BLOOD COUNT 3.45 10*6/uL (4.10-5.10); RED CELL DISTRI WIDTH 15.6 % (0-14.5)
[2018-07-29 07:12] LABS: BUN 13 mg/dl (7-24); CHLORIDE 107 mmol/L (98-107); CREATININE 0.86 mg/dL (0.55-1.02); POTASSIUM 3.5 mmol/L (3.5-5.1); SODIUM 142 mmol/L (136-145)
[2018-07-29 08:00] VITALS: BP 108/64
--- NOTE | 2018-07-29 08:08 | NUR ---
PHYSICAL THERAPY Nursing screen received. PT orders also received. Thank you. Kaya Florez,PT
--- NOTE | 2018-07-29 10:30 | NUR ---
Senior Electrical Designer in to talk to patient. Patient states lives at home with her , their daughter and her and their 2 children. There are 12 steps in the home. Physician: Dr. Katie Agarwal Pharmacy: [facility] Home health services: none Patient's level of ADLs: MINIMAL ASSIST Patient has working utilities: yes DME: cane Follow-up physician's appointment after d/c: will be made by the hospitalist nurse director upon discharge Does patient want to access PORTAL?: no Discharge plan discussed with patient. She lives at home with her family. She is independent in her ADLs and ambulates with a cane. Discussed home health care services and she denies any home needs at this time. When medically stable she will be discharged to home. ENEDELIA HEAD
--- NOTE | 2018-07-29 10:49 | NUR ---
PHYSICAL THERAPY PAtient Evaluated on 5, full evaluation to follow. Continue wth PT as per plan of care with fall, ABD SURGERY and acute debility precautions. Requires min to mod (A) for mobility at this date but refuses SNF. Recommend / fmaily (A) and home health Rn and PT, aides prn. PAtient is moderate complexity via chart review, tests and evaluation: 66342. thank you for this referral. Kaya Florez,PT
[2018-07-29 12:00] VITALS: BP 106/50
--- NOTE | 2018-07-29 13:56 | NUR ---
SPEECH PATHOLOGY Nursing screen completed. Patient is known to this dept. She underwent an outpatient MBS a couple weeks ago, displaying safe oral/pharyngeal swallowing skills. Patient had received prior therapy following CVA. This dept. will be available if acute speech/swallowing difficulties arise. ADELINA DEVINE MSCCC-WORKERS COMPENSATION CLAIMS ADJUSTER
--- NOTE | 2018-07-29 14:10 | NUR ---
PHYSICAL THERAPY Patient presented to therapy in sitting position with report of no pain at this time. Patient agrees to therapy session. Patient does not have a chair alarm present. Patient was identified by name and . Patient performed STS transfer with MOD A X 1 from bedside chair. Patient performed gait with MINERAL MIXER X 1 for 50' x 1. Patient then STS transfer again, from bedside chair with MOD A X 1. Patient ambulated 50' x [address] with MINERAL MIXER X 1 and ascended and descended x 2 steps with MINERAL MIXER X 1 with verbal cues for locking knee when stepping down and safe turn on the step. Patient ambulated back to room 50' x 1 with MINERAL MIXER X 1. Patient transferred to bedside chair with CGA X 1 with verbal cues for putting hands back on armrests of chair. Patient was left in bedside chair with LEs elevated, call light within reach, and no bed alarm present. Patient's tray table near patient. Patient was 1:1 with this INDUSTRIAL COOK for 23 minutes total. EUGENIA ESPINOSA INDUSTRIAL COOK
[2018-07-29 16:00] VITALS: BP 100/50
--- NOTE | 2018-07-29 16:15 | NUR ---
Nursing screen received and chart review completed. Recommend Occupational Therapy referral to assist with ADls and safety in ADLs. Thank you. Emily Long OTR/l
--- NOTE | 2018-07-29 19:00 | NUR ---
PT AWAKE IN BED W/DAUGHTER AT BEDSIDE DURING BEDSIDE SHIFT REPORT. CONTINUES TO C/O ABD PAIN BUT STATES PO PAIN MED HELPS. PT TEACHING GIVEN ON PRN PERCOCET TIMES. CALL LIGHT IN REACH.
[2018-07-29 20:00] VITALS: BP 98/64
--- NOTE | 2018-07-29 23:00 | NUR ---
PT STATES THAT PERCOCET WAS EFFECTIVE TO TAKE THE EDGE OFF OF THE PAIN IN HER ABD. CALL LIGHT IN REACH.
[2018-07-30] VITALS: BP 117/43
--- NOTE | 2018-07-30 03:51 | NUR ---
Patient sleeping. Respirations relaxed and easy. Siderails up . Wheeladams on. YESSY OQUENDO
--- NOTE | 2018-07-30 03:58 | NUR ---
24 HR chart check completed.
[2018-07-30 08:00] VITALS: BP 138/70
--- NOTE | 2018-07-30 08:39 | NUR ---
PRN PERCOCET GIVEN FOR COMPLAINTS OF PAIN IN HER LLQ. PAIN IS RATED AT A 7/10. WILL MONITOR FOR EFFECTIVENESS.
--- NOTE | 2018-07-30 09:05 | NUR ---
PHYSICAL THERAPY Patient seen this am 1:1 for therapy visit and was sitting up EOB upon therapist arrival. Patient was very pleasant and presented with very soft voice tones which were hard to understand at times. Patient c/o's R lower abdominal pain from recent surgery, 12/18 and transfers sit to stand Min/Mod A. 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 Patient educated on chair repositioning to assist with improving pain comfort. Patient stated she felt better sitting up in chair versus EOB and remained in chair with call light, tray table and telephone. Will continue per POC as tolerated, total treatment time 14 minutes. Hemal Lynn, BACK HOE OPERATOR
--- NOTE | 2018-07-30 11:00 | NUR ---
Corporate Real Estate Specialist in to see patient. No new needs or request at this time. Discussed home health care services and she is currently getting speech and physical therapy at the [facility] and would like to continue those services after discharge. When medically stable she will be discharged to home with the resumption of her speech and physical therapy services at the [facility].
[2018-07-30] MEDS ORDERED: TOPROL XL25 MG PO (11:15)
[2018-07-30] MEDS ORDERED: Synthroid,Lev150 MCG PO (11:15)
[2018-07-30] MEDS ORDERED: PERCOCET 5-3251 EACH PO (11:17)
--- NOTE | 2018-07-30 13:10 | NUR ---
Discharge instructions reviewed with patient/family. Patient receptive and verbalizes understanding. Follow-up care arranged. Written instructions given to patient/family.IV REMOVED. ALL BELONGINGS SENT HOME WITH THE PT. TREVIN MARTINEZ
--- NOTE | 2018-07-30 14:40 | NUR ---
PHYSICAL THERAPY CO-SIGN I approve of the Phyical Therapy notes written above. VIKY KELLY PT
[2018-10-22] MEDS ORDERED: Synthroid,Lev150 MCG PO (16:46)
[2018-10-22] MEDS ORDERED: CLARITIN10 MG PO (16:53)
[2018-10-24] MEDS ORDERED: CEFUROXIME250 MG PO (12:32)
== END 2018-07-30 13:10 | disposition home or self-care (01) | DRG 853 ==
LOC: ED 19:35 → EDHOLD 07-27 00:50 → 5E 07-27 00:50
PROVIDERS: Emergency Medicine; Internal Medicine; Surgery; ADMIT Internal Medicine
PROC: 0FT44ZZ Resection of Gallbladder, Percutaneous Endoscopic Approach (ICD-10-PCS; principal; 2018-07-27)
DX: A41.9 Sepsis, unspecified organism (principal); K65.8 Other peritonitis; K81.0 Acute cholecystitis; Z68.41 Body mass index [BMI] 40.0-44.9, adult; E44.1 Mild protein-calorie malnutrition; R47.01 Aphasia; K76.0 Fatty (change of) liver, not elsewhere classified; K44.9 Diaphragmatic hernia without obstruction or gangrene; D72.810 Lymphocytopenia; R73.9 Hyperglycemia, unspecified; R74.8 Abnormal levels of other serum enzymes; E03.9 Hypothyroidism, unspecified; F41.9 Anxiety disorder, unspecified; K21.9 Gastro-esophageal reflux disease without esophagitis; I10 Essential (primary) hypertension; R32 Unspecified urinary incontinence; E78.5 Hyperlipidemia, unspecified; E66.01 Morbid (severe) obesity due to excess calories; F32.9 Major depressive disorder, single episode, unspecified; I25.10 Atherosclerotic heart disease of native coronary artery without angina pectoris; Z91.09 Other allergy status, other than to drugs and biological substances; Z86.73 Personal history of transient ischemic attack (TIA), and cerebral infarction without residual deficits; Z88.2 Allergy status to sulfonamides; Z82.49 Family history of ischemic heart disease and other diseases of the circulatory system; Z80.9 Family history of malignant neoplasm, unspecified; Z79.899 Other long term (current) drug therapy

== ENCOUNTER → 2018-10-04 | Outpatient (CLI) | payer MEDICARE ==
[~2018-10-04] MED LIST changes: +CEFUROXIME250 MG PO; +PERCOCET 5-3251 EACH PO; +Synthroid,Lev150 MCG PO
== END | disposition home or self-care (01) ==
LOC: RAD 12:28
DX: R05 Cough (principal); R06.02 Shortness of breath; R09.89 Other specified symptoms and signs involving the circulatory and respiratory systems

== ENCOUNTER → 2019-02-06 | Outpatient (CLI) | payer MEDICARE ==
[2019-02-06 16:22] LABS: FREE T4 0.99 ng/dl (0.76-1.46)
[2019-02-06 16:27] LABS: THYROID STIM HORMONE (HS) 6.48 uIU/ml (0.358-4.75)
== END | disposition home or self-care (01) ==
LOC: LAB 14:47
PROVIDERS: Internal Medicine Endocrinology, Diabetes & Metabolism
DX: E55.9 Vitamin D deficiency, unspecified (principal); E03.9 Hypothyroidism, unspecified; R73.02 Impaired glucose tolerance (oral); Z79.899 Other long term (current) drug therapy

== ENCOUNTER 2019-06-19 12:16 | Inpatient (IN) | payer MEDICARE ==
[~2019-06-19] VITALS: Ht 157.4 cm; Wt 111.1 kg
[2019-06-19 12:45] VITALS: BP 136/57
[2019-06-19 13:11] LABS: BASO # 0.1 10*3/uL (0.0-0.1); BASO % 0.7 % (0.0-1.0); EOS # 0.2 10*3/uL (0.0-0.4); EOS % 2.5 % (1.0-4.0); HEMATOCRIT 41.1 % (37.0-47.0); HEMOGLOBIN 12.8 g/dl (12.0-16.0); LYMPH # 2.3 10*3/uL (1.3-4.4); LYMPH % 26.2 % (27.0-41.0); MEAN CELL VOLUME 84.7 fl (81.0-99.0); MEAN CORPUSCULAR HGB 26.4 pg (27.0-31.0); MEAN CORPUSCULAR HGB CONC 31.1 g/dl (33.0-37.0); MEAN PLATELET VOLUME 9.8 fl (9.6-12.3); MONO # 0.6 10*3/uL (0.1-1.0); MONO % 6.8 % (3.0-9.0); NEUT # 5.5 10*3/uL (2.3-7.9); NEUT % 63.6 % (47.0-73.0); PLATELET COUNT AUTOMATED 358 10*3/uL (130-400); RED BLOOD COUNT 4.85 10*6/uL (4.10-5.10); RED CELL DISTRI WIDTH 15.1 % (0-14.5); WHITE BLOOD COUNT 8.7 10*3/uL (4.8-10.8)
[2019-06-19 13:27] LABS: ACT PARTIAL THROMBO TIME 23.9 SECONDS (20.0-32.1); INTERNATIONAL NORM RATIO 0.9 (2.0-3.5)
[2019-06-19 13:29] LABS: ALBUMIN 3.6 gm/dl (3.1-4.5); ALKALINE PHOSPHATASE 154 U/L (45-117); BUN 11 mg/dl (7-24); CHLORIDE 106 mmol/L (98-107); CREATININE 1.04 mg/dL (0.55-1.02); POTASSIUM 4.1 mmol/L (3.5-5.1); SGOT/AST 18 IU/L (3-35); SGPT/ALT 34 U/L (12-78); SODIUM 138 mmol/L (136-145); TOTAL PROTEIN 8.2 gm/dL (6.4-8.2)
[2019-06-19 13:30] LABS: TROPONIN I < 0.015 ng/ml (<0.045)
--- NOTE | 2019-06-19 13:37 | NUR ---
LACTIC 2.2 DR MORRELL NOTIFIED.
[2019-06-19 16:02] LABS: BILIRUBIN NEGATIVE (NEGATIVE); BLOOD NEGATIVE (NEGATIVE); CLARITY CLEAR (CLEAR); COLOR YELLOW (YELLOW); GLUCOSE NEGATIVE (NEGATIVE); KETONE NEGATIVE (NEGATIVE); LEUKO ESTERASE NEGATIVE (NEGATIVE); NITRITE NEGATIVE (NEGATIVE); PH 7.5 (5.0-9.0); UROBILINOGEN 0.2 E.U./dl (0.2-1.0)
--- NOTE | 2019-06-19 16:22 | NUR ---
PT IS RESTING COMFORTABLY WITH EYES CLOSED. NO SIGN OF DISTRESS. NO COMPLAINTS AT THIS TIME.
--- NOTE | 2019-06-19 19:05 | NUR ---
PROVIDED PT WITH DINNER TRAY. NO COMPLAINTS AT THIS TIME. DAUGHTER AT BEDSIDE.
--- NOTE | 2019-06-19 20:29 | NUR ---
PT RESTING QUIETLY WITH EYES CLOSED. NO SIGN OF DISTRESS. NO COMPLAINTS. DAUGHTER AT BEDSIDE. CALL LIGHT IN REACH.
--- NOTE | 2019-06-19 21:04 | NUR ---
PT RESTING QUIETLY WITH EYES CLOSED. SON IN LAW AT BEDSIDE. NO COMPLAINTS.
--- NOTE | 2019-06-19 23:24 | NUR ---
NURSE TO NURSE REPORT GIVEN TO THIS RN.
[2019-06-20 00:27] VITALS: BP 120/70
--- NOTE | 2019-06-20 00:28 | NUR ---
PT VITALS REASSESSED.PT RESTING IN BED PROVIDED FROM FLOOR.NO NEEDS AT THIS TIME.SUPPORT PERSON REMAINS AT BEDSIDE.
--- NOTE | 2019-06-20 04:01 | NUR ---
PT RESTING IN BED.SUPPORT PERSON AT BEDSIDE.DENIES ANY NEEDS AT THIS TIME.
[2019-06-20 05:12] VITALS: BP 119/48
--- NOTE | 2019-06-20 05:13 | NUR ---
PT VITALS REASSESSED.DENIES ANY NEEDS AT THIS TIME.SUPPORT PERSON REMAINS AT BEDSIDE.
--- NOTE | 2019-06-20 07:14 | NUR ---
I WENT IN TO SPEAK WITH THE PT WHO IS RESTING COMFPRTABLY. THE DAUGHTER ASKS IF THE PT IS GOING TO BE DISCHARGED HOME TODAY. I EXPRESS THAT THE PT WILL BE GOING UPSTAIRS. SHE DOES NOT WANT THE PT TO BE ADMITTED. I CONTACTED RESIDENT WHO WILL CONTACT THE ATTENDING.
--- NOTE | 2019-06-20 07:46 | NUR ---
DR. YOON IN TO SPEAK WITH THE PT AND DAUGHTER. ADMITTED PT WILL BE DISCHARGED FROM THE ED.
--- NOTE | 2019-06-20 10:04 | NUR ---
SPEECH THERAPY Orders received for bedside swallowing evaluation and chart review complete. Attempted to see patient bedside this morning however patient was not present in room, and nursing staff reported that patient was not admitted and was discharged. Rose Veloz MA, CCC-COCOA POWDER MIXER OPERATOR
== END 2019-06-20 07:47 | disposition home or self-care (01) | DRG 91 ==
LOC: ED 12:16 → EDHOLD 16:53 → 5E 06-20 07:38
PROVIDERS: Emergency Medicine; ADMIT Internal Medicine
DX: R47.01 Aphasia (principal); N17.0 Acute kidney failure with tubular necrosis; E87.2 Acidosis; R26.81 Unsteadiness on feet; F41.9 Anxiety disorder, unspecified; I25.10 Atherosclerotic heart disease of native coronary artery without angina pectoris; K21.9 Gastro-esophageal reflux disease without esophagitis; F32.9 Major depressive disorder, single episode, unspecified; I10 Essential (primary) hypertension; E78.5 Hyperlipidemia, unspecified; E03.9 Hypothyroidism, unspecified; Z90.49 Acquired absence of other specified parts of digestive tract; Z80.9 Family history of malignant neoplasm, unspecified; Z79.82 Long term (current) use of aspirin; Z79.899 Other long term (current) drug therapy; Z88.2 Allergy status to sulfonamides; Z91.030 Bee allergy status; E55.9 Vitamin D deficiency, unspecified; Z86.73 Personal history of transient ischemic attack (TIA), and cerebral infarction without residual deficits; R32 Unspecified urinary incontinence

== ENCOUNTER → 2019-07-07 | Outpatient (CLI) | payer MEDICARE | END | disposition home or self-care (01) | LOC: MRI 12:57 | DX: G93.89 Other specified disorders of brain (principal); I63.9 Cerebral infarction, unspecified; R53.1 Weakness ==

== ENCOUNTER → 2019-07-10 | Outpatient (CLI) | payer MEDICARE | END | disposition home or self-care (01) | LOC: MRI 12:49 | DX: I63.9 Cerebral infarction, unspecified (principal); R53.1 Weakness ==

== ENCOUNTER → 2019-08-05 | Outpatient (CLI) | payer MEDICARE | END | disposition home or self-care (01) | LOC: US 11:39 | DX: N28.1 Cyst of kidney, acquired (principal); I10 Essential (primary) hypertension ==

== ENCOUNTER 2019-11-27 03:48 | Inpatient (IN) | payer MEDICARE ==
[2019-11-27] VITALS (11 sets, daily range): BP systolic 100–161; BP diastolic 56–131
[~2019-11-27] VITALS: Ht 157.4 cm; Wt 123.5 kg
[2019-11-27 04:14] LABS: BASO # 0.1 10*3/uL (0.0-0.1); BASO % 0.8 % (0.0-1.0); EOS # 0.3 10*3/uL (0.0-0.4); EOS % 3.4 % (1.0-4.0); HEMATOCRIT 39.8 % (37.0-47.0); LYMPH # 3.7 10*3/uL (1.3-4.4); LYMPH % 36.1 % (27.0-41.0); MEAN CELL VOLUME 84.5 fl (81.0-99.0); MEAN CORPUSCULAR HGB 27.2 pg (27.0-31.0); MEAN CORPUSCULAR HGB CONC 32.2 g/dl (33.0-37.0); MEAN PLATELET VOLUME 9.4 fl (9.6-12.3); MONO # 0.7 10*3/uL (0.1-1.0); MONO % 6.4 % (3.0-9.0); NEUT # 5.4 10*3/uL (2.3-7.9); PLATELET COUNT AUTOMATED 374 10*3/uL (130-400); RED BLOOD COUNT 4.71 10*6/uL (4.10-5.10); RED CELL DISTRI WIDTH 15.7 % (0-14.5); WHITE BLOOD COUNT 10.1 10*3/uL (4.8-10.8)
[2019-11-27 04:24] LABS: INTERNATIONAL NORM RATIO 0.9 (2.0-3.5)
[2019-11-27 04:30] LABS: ALBUMIN 3.4 gm/dl (3.1-4.5); ALKALINE PHOSPHATASE 144 U/L (45-117); BUN 13 mg/dl (7-24); CHLORIDE 103 mmol/L (98-107); CREATININE 1.12 mg/dL (0.55-1.02); POTASSIUM 3.4 mmol/L (3.5-5.1); SGOT/AST 20 IU/L (3-35); SGPT/ALT 31 U/L (12-78); SODIUM 137 mmol/L (136-145)
[2019-11-27 04:38] LABS: TROPONIN I < 0.015 ng/ml (<0.045)
[2019-11-27] MEDS ORDERED: SYNTHROID137 MCG PO (06:20)
[2019-11-27] MEDS ORDERED: PANTOPRAZOLE SO40 MG PO (06:21)
[2019-11-28] VITALS (7 sets, daily range): BP systolic 103–124; BP diastolic 46–56
[2019-11-28 05:58] LABS: BASO # 0.1 10*3/uL (0.0-0.1); BASO % 0.6 % (0.0-1.0); EOS # 0.3 10*3/uL (0.0-0.4); EOS % 3.3 % (1.0-4.0); HEMATOCRIT 36.7 % (37.0-47.0); LYMPH # 2.5 10*3/uL (1.3-4.4); LYMPH % 26.3 % (27.0-41.0); MEAN CELL VOLUME 86.6 fl (81.0-99.0); MEAN CORPUSCULAR HGB 26.7 pg (27.0-31.0); MEAN CORPUSCULAR HGB CONC 30.8 g/dl (33.0-37.0); MEAN PLATELET VOLUME 9.6 fl (9.6-12.3); MONO # 0.8 10*3/uL (0.1-1.0); MONO % 8.9 % (3.0-9.0); NEUT # 5.7 10*3/uL (2.3-7.9); NEUT % 60.6 % (47.0-73.0); PLATELET COUNT AUTOMATED 325 10*3/uL (130-400); RED BLOOD COUNT 4.24 10*6/uL (4.10-5.10); WHITE BLOOD COUNT 9.4 10*3/uL (4.8-10.8)
[2019-11-28 06:26] LABS: BUN 8 mg/dl (7-24); CHLORIDE 108 mmol/L (98-107); CHOLESTEROL 117 mg/dL (<200); CREATININE 0.85 mg/dL (0.55-1.02); SODIUM 140 mmol/L (136-145); TRIGLYCERIDES 76 mg/dl (<150); VLDL CHOLESTEROL 15 mg/dL (6-40)
[2019-11-28 06:35] LABS: HDL CHOLESTEROL 55 mg/dl (40-60); LDL CHOLESTEROL 47 mg/dL (9-159)
[2019-11-28] MEDS ORDERED: Carafate1 GM PO (11:22)
[2019-12-08] MEDS ORDERED: OMNICEF300 MG PO (14:09)
== END 2019-11-28 12:17 | disposition home or self-care (01) | DRG 383 ==
LOC: ED 03:48 → EDHOLD 05:07 → 4E 05:07
PROVIDERS: Emergency Medicine; Student in an Organized Health Care Education/Training Program; ADMIT Family Medicine
PROC: 3E073KZ Introduction of Other Diagnostic Substance into Coronary Artery, Percutaneous Approach (ICD-10-PCS; principal; 2019-11-27)
PROC: 4A02XM4 Measurement of Cardiac Total Activity, External Approach (ICD-10-PCS; principal; 2019-11-27)
PROC: 0DB68ZX Excision of Stomach, Via Natural or Artificial Opening Endoscopic, Diagnostic (ICD-10-PCS; 2019-11-28)
DX: K25.9 Gastric ulcer, unspecified as acute or chronic, without hemorrhage or perforation (principal); N17.0 Acute kidney failure with tubular necrosis; Z68.42 Body mass index [BMI] 45.0-49.9, adult; I25.119 Atherosclerotic heart disease of native coronary artery with unspecified angina pectoris; K21.0 Gastro-esophageal reflux disease with esophagitis; K44.9 Diaphragmatic hernia without obstruction or gangrene; F41.9 Anxiety disorder, unspecified; E87.6 Hypokalemia; I10 Essential (primary) hypertension; E78.5 Hyperlipidemia, unspecified; F32.9 Major depressive disorder, single episode, unspecified; E55.9 Vitamin D deficiency, unspecified; E11.65 Type 2 diabetes mellitus with hyperglycemia; E66.01 Morbid (severe) obesity due to excess calories; Z86.73 Personal history of transient ischemic attack (TIA), and cerebral infarction without residual deficits; R51 Headache; Z90.49 Acquired absence of other specified parts of digestive tract; Z80.9 Family history of malignant neoplasm, unspecified; Z88.2 Allergy status to sulfonamides; Z91.030 Bee allergy status; Z79.82 Long term (current) use of aspirin; Z79.899 Other long term (current) drug therapy

== ENCOUNTER → 2020-01-27 | Outpatient (CLI) | payer MEDICARE ==
[~2020-01-27] MED LIST changes: +Carafate1 GM PO; +OMNICEF300 MG PO; +PANTOPRAZOLE SO40 MG PO; +SYNTHROID137 MCG PO
== END | disposition home or self-care (01) ==
LOC: US 16:51
DX: E03.9 Hypothyroidism, unspecified (principal)

== ENCOUNTER → 2020-09-20 | Outpatient (CLI) | payer MEDICARE | END | disposition home or self-care (01) | LOC: US 09:30 | PROVIDERS: ATTEND Family Medicine | DX: K76.0 Fatty (change of) liver, not elsewhere classified (principal); N28.1 Cyst of kidney, acquired; R74.01 Elevation of levels of liver transaminase levels; Z90.49 Acquired absence of other specified parts of digestive tract ==

== ENCOUNTER → 2021-08-11 | Day surgery (SDC) | payer MEDICARE ==
[~2021-08-11] VITALS: Ht 157.4 cm; Wt 101.2 kg
[~2021-08-11] MED LIST changes: +CARAFATE1 G1 PO
[2021-08-11 07:34] VITALS: BP 131/68
[2021-08-11 08:18] VITALS: BP 106/44
[2021-08-11 08:33] VITALS: BP 104/45
[2021-08-11 08:48] VITALS: BP 109/48
[2021-08-11 09:03] VITALS: BP 103/56
[2021-08-11 09:23] VITALS: BP 107/42
== END | disposition home or self-care (01) ==
LOC: SDC 07-04 08:00
PROVIDERS: ATTEND Surgery
DX: Z12.11 Encounter for screening for malignant neoplasm of colon (principal); K22.2 Esophageal obstruction; F41.9 Anxiety disorder, unspecified; Z86.73 Personal history of transient ischemic attack (TIA), and cerebral infarction without residual deficits; I25.10 Atherosclerotic heart disease of native coronary artery without angina pectoris; F32.9 Major depressive disorder, single episode, unspecified; K21.9 Gastro-esophageal reflux disease without esophagitis; E78.5 Hyperlipidemia, unspecified; I10 Essential (primary) hypertension; E66.01 Morbid (severe) obesity due to excess calories; Z68.41 Body mass index [BMI] 40.0-44.9, adult; Z90.49 Acquired absence of other specified parts of digestive tract; Z90.89 Acquired absence of other organs
CPT/HCPCS: 00813; 43248; G0121

== ENCOUNTER 2022-01-02 20:23 | Emergency (ER) | payer MEDICARE ==
[~2022-01-02] VITALS: Ht 157.4 cm; Wt 92.5 kg
[2022-01-02] MEDS ORDERED: SYNTHROID,LEV175 MCG PO (20:56)
[2022-01-02 21:23] LABS: BILIRUBIN Negative (Negative); BLOOD Negative (Negative); CLARITY Clear (Clear); COLOR Yellow (Yellow); GLUCOSE Negative (Negative); KETONE Negative (Negative); LEUKO ESTERASE Negative (Negative); NITRITE Negative (Negative)
[2022-01-02 21:33] LABS: BACTERIA TRACE
[2022-01-02] MEDS ORDERED: OMNICEF300 MG PO (21:42)
[2022-01-02 22:14] LABS: BASO % 0.4 % (0.0-1.0); EOS # 0.1 10*3/uL (0.0-0.4); EOS % 0.7 % (1.0-4.0); HEMATOCRIT 39.3 % (37.0-47.0); LYMPH % 18.3 % (27.0-41.0); MEAN CELL VOLUME 85.2 fl (81.0-99.0); MEAN CORPUSCULAR HGB CONC 32.8 g/dl (33.0-37.0); MEAN PLATELET VOLUME 9.7 fl (9.6-12.3); MONO # 1.2 10*3/uL (0.1-1.0); NEUT # 7.5 10*3/uL (2.3-7.9); NEUT % 69.3 % (47.0-73.0); PLATELET COUNT AUTOMATED 318 10*3/uL (130-400); RED BLOOD COUNT 4.61 10*6/uL (4.10-5.10); RED CELL DISTRI WIDTH 14.4 % (0-14.5); WHITE BLOOD COUNT 10.9 10*3/uL (4.8-10.8)
[2022-01-02 22:33] LABS: ALKALINE PHOSPHATASE 118 U/L (45-117); BUN 8 mg/dl (7-24); CHLORIDE 108 mmol/L (98-107); CREATININE 0.71 mg/dL (0.55-1.02); POTASSIUM 4.1 mmol/L (3.5-5.1); SGOT/AST 18 IU/L (3-35); SGPT/ALT 21 U/L (12-78); SODIUM 140 mmol/L (136-145)
[2022-01-03] MEDS ORDERED: CIPRO500 MG PO (00:47)
[2022-01-03] MEDS ORDERED: FLAGYL 375375 MG PO (00:47)
== END 2022-01-03 00:51 | disposition home or self-care (01) ==
LOC: ED 20:23
PROVIDERS: Emergency Medicine
DX: K57.32 Diverticulitis of large intestine without perforation or abscess without bleeding (principal); N39.0 Urinary tract infection, site not specified; Z90.49 Acquired absence of other specified parts of digestive tract; Z79.899 Other long term (current) drug therapy; Z91.030 Bee allergy status; Z88.2 Allergy status to sulfonamides

== ENCOUNTER → 2022-02-06 | Day surgery (SDC) | payer MEDICARE ==
[~2022-02-06] VITALS: Ht 157.4 cm; Wt 92.5 kg
[~2022-02-06] MED LIST changes: +AMOX-CLAV 875-1 EACH PO; +CIPRO500 MG PO; +FLAGYL 375375 MG PO; +HYDROCODONE-AC1 EAC1 PO; +ONDANSETRON4 MG SL
[2022-02-06 07:43] VITALS: BP 140/68
[2022-02-06 08:20] VITALS: BP 113/59
[2022-02-06 08:35] VITALS: BP 111/60
[2022-02-06 08:55] VITALS: BP 103/84
== END | disposition home or self-care (01) ==
LOC: SDC 02-03 13:15
PROVIDERS: ATTEND Surgery
DX: K22.2 Esophageal obstruction (principal); F41.9 Anxiety disorder, unspecified; I10 Essential (primary) hypertension; F32.9 Major depressive disorder, single episode, unspecified; E78.00 Pure hypercholesterolemia, unspecified; K21.9 Gastro-esophageal reflux disease without esophagitis; E03.9 Hypothyroidism, unspecified; G47.00 Insomnia, unspecified; Z86.73 Personal history of transient ischemic attack (TIA), and cerebral infarction without residual deficits; Z88.1 Allergy status to other antibiotic agents; Z88.8 Allergy status to other drugs, medicaments and biological substances; Z79.899 Other long term (current) drug therapy

== ENCOUNTER → 2022-12-25 | Outpatient (CLI) | payer MEDICARE ==
[2022-12-25 11:18] LABS: BUN 11 mg/dl (9-23); CHLORIDE 103 mmol/L (98-107); CPK 82 U/L (34-171); POTASSIUM 4.1 mmol/L (3.4-5.1)
== END | disposition home or self-care (01) ==
LOC: LAB 01:17 → US 10:30
PROVIDERS: Student in an Organized Health Care Education/Training Program; ATTEND Family Medicine
DX: N95.0 Postmenopausal bleeding (principal)

== ENCOUNTER → 2023-01-01 | Day surgery (SDC) | payer MEDICARE ==
[~2023-01-01] VITALS: Ht 157.4 cm; Wt 99.8 kg
[2023-01-01 08:13] VITALS: BP 136/62
[2023-01-01 09:12] VITALS: BP 120/57
[2023-01-01 09:22] VITALS: BP 123/60
[2023-01-01 09:42] VITALS: BP 132/58
[2023-01-01 09:57] VITALS: BP 127/60
== END ==
LOC: SDC 12-28 11:00
PROVIDERS: ATTEND Surgery
DX: R13.10 Dysphagia, unspecified (principal); K22.2 Esophageal obstruction; E05.00 Thyrotoxicosis with diffuse goiter without thyrotoxic crisis or storm; E03.9 Hypothyroidism, unspecified; G47.00 Insomnia, unspecified; Z79.899 Other long term (current) drug therapy; Z98.51 Tubal ligation status; Z90.89 Acquired absence of other organs; Z98.890 Other specified postprocedural states

== ENCOUNTER → 2023-01-11 | Outpatient (CLI) | payer MEDICARE | END | disposition home or self-care (01) | LOC: MAMMO 01:13 | PROVIDERS: ATTEND Student in an Organized Health Care Education/Training Program | DX: Z12.31 Encounter for screening mammogram for malignant neoplasm of breast (principal); N63.21 Unspecified lump in the left breast, upper outer quadrant; N63.11 Unspecified lump in the right breast, upper outer quadrant ==

== ENCOUNTER → 2023-01-25 | Outpatient (CLI) | payer MEDICARE | END | disposition home or self-care (01) | LOC: MAMMO 08:57 | PROVIDERS: ATTEND Family Medicine | DX: N63.11 Unspecified lump in the right breast, upper outer quadrant (principal); R92.1 Mammographic calcification found on diagnostic imaging of breast; R92.2 Inconclusive mammogram ==

== ENCOUNTER → 2023-02-06 | Outpatient (CLI) | payer MEDICARE | END | disposition home or self-care (01) | LOC: SDC 01:07 → EDSTATUS 02-07 11:00 → SDC 02-07 11:00 | PROVIDERS: ATTEND Family Medicine | DX: N63.10 Unspecified lump in the right breast, unspecified quadrant (principal); C50.411 Malignant neoplasm of upper-outer quadrant of right female breast ==

== ENCOUNTER → 2023-02-15 | Outpatient (CLI) | payer MEDICARE | END | disposition home or self-care (01) | LOC: US 15:00 | PROVIDERS: ATTEND Family Medicine | DX: N64.4 Mastodynia (principal); N64.89 Other specified disorders of breast ==

== ENCOUNTER → 2024-11-10 | Outpatient (CLI) | payer MEDICARE | END | disposition home or self-care (01) | LOC: CT 10:07 | PROVIDERS: ATTEND Family Medicine | DX: N28.1 Cyst of kidney, acquired (principal); K57.90 Diverticulosis of intestine, part unspecified, without perforation or abscess without bleeding; K44.9 Diaphragmatic hernia without obstruction or gangrene; R10.32 Left lower quadrant pain; Z90.49 Acquired absence of other specified parts of digestive tract ==

== ENCOUNTER → 2025-01-02 | Outpatient (CLI) | payer MEDICARE ==
[~2025-01-02] MED LIST changes: +IOHEXOL 300 MG/ML 100 ML VIAL IV ONE
== END | disposition home or self-care (01) ==
LOC: CT 01:40
PROVIDERS: ATTEND Nurse Practitioner Family
DX: K57.30 Diverticulosis of large intestine without perforation or abscess without bleeding (principal); N28.1 Cyst of kidney, acquired; I25.10 Atherosclerotic heart disease of native coronary artery without angina pectoris; R10.32 Left lower quadrant pain; Z90.49 Acquired absence of other specified parts of digestive tract

== ENCOUNTER → 2025-01-27 | Outpatient (CLI) | payer MEDICARE ==
[~2025-01-27] MED LIST changes: -IOHEXOL 300 MG/ML 100 ML VIAL IV ONE
== END | disposition home or self-care (01) ==
LOC: CT 03:08
PROVIDERS: ATTEND Internal Medicine Medical Oncology
DX: C50.911 Malignant neoplasm of unspecified site of right female breast (principal); C79.51 Secondary malignant neoplasm of bone; R06.02 Shortness of breath; J43.9 Emphysema, unspecified; I25.10 Atherosclerotic heart disease of native coronary artery without angina pectoris; K44.9 Diaphragmatic hernia without obstruction or gangrene; M47.814 Spondylosis without myelopathy or radiculopathy, thoracic region; R91.8 Other nonspecific abnormal finding of lung field